=== PATIENT | male | born 1995 | race Caucasian/White ===

== ENCOUNTER 2020-12-27 10:05 | Emergency (ER) | payer OTHER ==
[~2020-12-27] VITALS: Ht 185.4 cm; Wt 117.3 kg
[2020-12-27 10:13] VITALS: BP 137/90
--- NOTE | 2020-12-27 10:16 | NUR ---
PT TO WAIT IN LOBBY
--- NOTE | 2020-12-27 10:20 | NUR ---
25 Y/O MALE C/O BACK PAIN X3 DAYS S/P FALLING AT WORK. PT SAW DR AT WORK, STATED EVERYTHING WAS FINE BUT NOW WANTS SECOND OPINION. HIT HEAD, DENIES LOC PMH:DENIES NKDA
[2020-12-27] MEDS ORDERED: ACETAMINOPHEN 325 MG TAB PO ONE (10:35)
--- NOTE | 2020-12-27 11:16 | NUR ---
PT TAKEN TO [facility] W/C FROM XR.
[2020-12-27] MEDS ORDERED: NAPR-54 PO (12:13)
[2020-12-27 13:00] VITALS: BP 137/90
--- NOTE | 2020-12-27 13:00 | NUR ---
Patient discharged with v/s stable. Written and verbal after care instructions given and explained. Patient verbalized understanding. Ambulatory with steady gait. All questions addressed prior to discharge. Advised to follow up with PMD.
== END 2020-12-27 13:00 | disposition home or self-care (01) ==
LOC: MED 10:05
DX: S13.4XXA Sprain of ligaments of cervical spine, initial encounter (principal); S43.401A Unspecified sprain of right shoulder joint, initial encounter; M79.10 Myalgia, unspecified site; F17.210 Nicotine dependence, cigarettes, uncomplicated; W19.XXXA Unspecified fall, initial encounter; Y93.89 Activity, other specified; Y92.89 Other specified places as the place of occurrence of the external cause; Y99.8 Other external cause status
CPT/HCPCS: 72040; 72100; 73030; 99283; 99284

== ENCOUNTER 2022-04-01 13:20 | Inpatient (IN) | payer OTHER ==
[~2022-04-01] VITALS: Ht 174 cm; Wt 105.7 kg
[~2022-04-01 13:20] MED LIST: NAPR-54 PO
[2022-04-01 13:39] VITALS: BP 117/61
--- NOTE | 2022-04-01 13:41 | NUR ---
PT AMB TO BED 4.
[2022-04-01] MEDS ORDERED: MORPHINE SULFATE 4 MG/ML SYR IVP ONE (14:30)
[2022-04-01 14:50] LABS: BASOPHILS # (AUTO) 0.1 K/uL (0.00-0.22); BASOPHILS % (AUTO) 0.8 % (0.0-2.0); EOSINOPHILS # (AUTO) 0.3 K/uL (0-0.4); EOSINOPHILS % (AUTO) 3.3 % (0.0-4.0); HEMATOCRIT 44.3 % (36-52); HEMOGLOBIN 14.8 g/dL (12.0-18.0); LYMPHOCYTES # (AUTO) 1.3 K/uL (2.0-11.5); LYMPHOCYTES % (AUTO) 13.5 % (20.5-51.1); MEAN CORPUSCULAR HEMOGLOBIN 28 pg (27-31); MEAN CORPUSCULAR HGB CONC 33 g/dL (33-37); MEAN CORPUSCULAR VOLUME 83.1 fL (80-94); MONOCYTES # (AUTO) 0.6 K/uL (0.8-1.0); MONOCYTES % (AUTO) 6.2 % (1.7-9.3); NEUTROPHILS # (AUTO) 7.6 K/uL (1.8-7.7); NEUTROPHILS % (AUTO) 76.2 % (42.2-75.2); PLATELET COUNT (AUTO) 331 K/uL (140-450); RED BLOOD CELL COUNT(AUTO) 5.34 MIL/uL (4.20-6.10)
[2022-04-01 15:12] LABS: ALBUMIN 3.3 g/dL (3.4-5.0); ANION GAP 14.5 (8-16); CARBON DIOXIDE 27.7 mmol/L (21-32); CREATININE 0.8 mg/dL (0.6-1.3); POTASSIUM 4.2 mmol/L (3.5-5.1); TOTAL BILIRUBIN 0.3 mg/dL (0.0-1.0)
[2022-04-01] MEDS ORDERED: metroNIDAZOLE 500 MG/NS PREMIX 100 ML IV ONE (17:10)
[2022-04-01] MEDS ORDERED: cefTRIAXone 1,000 MG VIAL ONE (17:18)
[2022-04-01] MEDS ORDERED: NACL 0.9% 1,000 ML IV ONE (17:20)
--- NOTE | 2022-04-01 17:47 | NUR ---
Covid swab dropped off with lab.
[2022-04-01] MEDS ORDERED: POTASSIUM CHLORIDE 10 MEQ TABER PO PRN (19:10)
[2022-04-01] MEDS ORDERED: MAGNESIUM OXIDE 400 MG TAB PO PRN (19:10)
[2022-04-01] MEDS ORDERED: KCL 20 MEQ/WATER INJ PREMIX 200 ML IV PRN (19:10)
[2022-04-01] MEDS ORDERED: MAG SULF 2000 MG/WATER PREMIX 50 ML IV PRN (19:10)
[2022-04-01] MEDS ORDERED: MORPHINE SULFATE 4 MG/ML SYR IVP PRN (19:10)
[2022-04-01] MEDS ORDERED: VANCOMYCIN PER PHARMACY MC PRN (19:10)
[2022-04-01] MEDS ORDERED: HYDROcodone/APAP 5/325 MG 1 TAB TAB PO PRN (19:10)
[2022-04-01] MEDS ORDERED: ACETAMINOPHEN 325 MG TAB PO PRN (19:10)
[2022-04-01] MEDS ORDERED: ONDANSETRON 4 MG/2 ML VIAL IVP PRN (19:10)
[2022-04-01] MEDS: NACL 0.9% 1,000 ML IV SCH (19:24)
[2022-04-01] MEDS ORDERED: VANCOMYCIN HCL 1.25 GM in NACL 0.9% 250 ML IV SCH (20:00)
--- NOTE | 2022-04-01 20:33 | NUR ---
Patient will be admitted to care of NETTIE Pope and Shawna Ocasio MD. Admited to med surg. Will go to room. Belongings list completed. Report to NETTIE Pope.
[2022-04-01 21:02] VITALS: BP 115/66
--- NOTE | 2022-04-01 21:02 | NUR ---
RECEIVED REPORT FROM ER NURSE DIOGENES FOR CONTINUITY OF CARE. PATIENT IS A&O X4; NEPALI SPEAKING. PATIENT IS ON ROOM AIR, BREATHING IS NORMAL WITH SYMMETRICAL RISE AND FALL OF CHEST. IV IS A 20G LAC, RUNNING NS 80. PATIENT WAS ABLE TO AMBULATE FROM GURNEY TO BED WITHOUT DIFFICULTY; BUT PREFERS TO USE URINAL FOR VOIDING OPPOSED TO WALKING TO BATHROOM. ADMISSION VITALS WERE: BP 115/66, HR 82, TEMP 96.9, O2 98, RR 18. BED IS IN LOWEST POSITION, WHEELS LOCKED, CALL LIGHT IN PLACE. WILL CONTINUE TO OBSERVE PATIENT.
[2022-04-01] MEDS ORDERED: PIPERACILLIN/TAZOBACTAM 3.375 GM VIAL IV ONE (23:07)
[2022-04-01] MEDS: PIPERACILLIN/TAZOBACTAM 3.375 GM in DEXTROSE 5% 50 ML IV SCH (23:26)
--- NOTE | 2022-04-02 | NUR ---
DR. TORI EDDY CALLED AND ASKED ME TO FIND OUT FROM PATIENT WHERE THE PAIN WAS COMING FROM; I ASKED PATIENT WHERE THE PAIN WAS COMING FROM, PATIENT INDICATED JUST BELOW THE TESTICLES; I ASKED PATIENT IF IT WAS MORE ON THE RIGHT OR LEFT; PATIENT STATED IT WAS IN THE CENTER AND SHOWED ME THE PERINEAL AREA. INFORMED DR. EDDY OF LOCATION; INFORMED ME TO KEEP THE PATIENT NPO EXCEPT MEDS BECAUSE HE MAY HAVE SURGERY IN THE MORNING. PRINTED CONSENT FORM OUT AND PLACED IN PATIENT'S CHART FOR POSSIBLE SURGERY. USED MATERIALS ENGINEER TO DO ADMISSION (Pirate Pay ID# [id number]); USING MATERIALS ENGINEER INFORMED PATIENT OF NPO STATUS AND POSSIBLE SURGERY TOMORROW. PATIENT STATED OKAY. PATIENT WAS COOPERATIVE DURING ADMISSION. MANAGER BAKERY CALLED AFTER ADMISSION WAS DONE AND INFORMED ME THAT PATIENT WAS SCHEDULED TO HAVE SURGERY TOMORROW AT 1100 FOR AN I&D. I INFORMED PATIENT THAT SURGERY WAS SCHEDULED FOR TOMORROW AT 1100. STARTED PATIENT 0000 IVPB ZOSYN, PATIENT WAS LYING IN SEMI-FOWLERS IN BED STILL AWAKE BUT TRYING TO SLEEP. BREATHING WAS NORMAL WITH SYMMETRICAL RISE AND FALL OF CHEST. WILL CONTINUE TO OBSERVE PATIENT.
--- NOTE | 2022-04-02 02:00 | NUR ---
LOOKED IN ON PATIENT. PATIENT WAS AWAKE LYING HIGH-FOWLERS POSITION. BREATHING WAS NORMAL WITH SYMMETRICAL RISE AND FALL OF CHEST. IV WAS RUNNING NS 80. ASKED PATIENT HOW HE WAS, PATIENT STATED HE WAS OKAY. WILL CONTINUE TO OBSERVE PATIENT.
[2022-04-02 04:00] VITALS: BP 120/72
[2022-04-02] MEDS ORDERED: PIPERACILLIN/TAZOBACTAM 3.375 GM VIAL IV ONE (06:12)
[2022-04-02] MEDS: PIPERACILLIN/TAZOBACTAM 3.375 GM in DEXTROSE 5% 50 ML IV SCH ×4 (06:15→23:13)
--- NOTE | 2022-04-02 06:20 | NUR ---
ADMINISTERED 0600 MEDICATION TO PATIENT. IVPB STARTED WITHOUT ANY ISSUES. PATIENT WAS AWAKE, LYING HIGH-FOWLERS POSITION. BREATHING WAS NORMAL WITH SYMMETRICAL RISE AND FALL OF CHEST. REMINDED PATIENT HE HAS SURGERY AT 1100. PATIENT ACKNOWLEDGED UNDERSTANDING BY STATING, "YES, SURGERY AT 11".
[2022-04-02 06:52] LABS: BASOPHILS # (AUTO) 0.1 K/uL (0.00-0.22); BASOPHILS % (AUTO) 0.5 % (0.0-2.0); EOSINOPHILS # (AUTO) 0.3 K/uL (0-0.4); EOSINOPHILS % (AUTO) 2.8 % (0.0-4.0); HEMATOCRIT 40.4 % (36-52); HEMOGLOBIN 13.4 g/dL (12.0-18.0); LYMPHOCYTES # (AUTO) 1.4 K/uL (2.0-11.5); LYMPHOCYTES % (AUTO) 12.1 % (20.5-51.1); MEAN CORPUSCULAR HEMOGLOBIN 28 pg (27-31); MEAN CORPUSCULAR HGB CONC 33 g/dL (33-37); MEAN CORPUSCULAR VOLUME 82.9 fL (80-94); MONOCYTES # (AUTO) 0.7 K/uL (0.8-1.0); MONOCYTES % (AUTO) 6.2 % (1.7-9.3); NEUTROPHILS % (AUTO) 78.4 % (42.2-75.2); PLATELET COUNT (AUTO) 315 K/uL (140-450); RED BLOOD CELL COUNT(AUTO) 4.87 MIL/uL (4.20-6.10); RED CELL DISTRIBUTION WIDTH 14.3 % (11.6-13.7); WHITE BLOOD COUNT (AUTO) 11.5 K/uL (4.8-10.8)
[2022-04-02 07:16] LABS: ALBUMIN 2.9 g/dL (3.4-5.0); ANION GAP 13.8 (8-16); CARBON DIOXIDE 25.8 mmol/L (21-32); CREATININE 0.8 mg/dL (0.6-1.3); MAGNESIUM 1.8 mg/dL (1.8-2.4); POTASSIUM 3.6 mmol/L (3.5-5.1); TOTAL BILIRUBIN 0.3 mg/dL (0.0-1.0)
--- NOTE | 2022-04-02 07:30 | NUR ---
ENDORSED TO DAY SHIFT NURSE DIONISIO FOR CONTINUITY OF CARE. PATIENT IS STABLE.
--- NOTE | 2022-04-02 07:31 | NUR ---
RECEIVED REPORT FROM PIGMENT MIXER NURSE DAVID FOR CONTINUITY OF CARE. PT AWAKE IN BED. RESPIRATIONS EVEN AND UNLABORED ON RA. NO DISTRESS NOTED. NO COMPLAINTS OF PAIN. PT NPO EXCEPT MEDS. PT AND TRUCK CAR AND BUS CLEANER AWARE. NPO SIGN PLACED AT THE DOOR. SKIN INTACT, WARM AND DRY TO TOUCH. CALL LIGHT WITHIN REACH. SAFETY PRECAUTIONS IN PLACE.
[2022-04-02] MEDS: NACL 0.9% 1,000 ML IV SCH ×2 (07:55→22:15)
[2022-04-02 08:00] VITALS: BP 117/70
[2022-04-02] MEDS: VANCOMYCIN HCL 1.25 GM in DEXTROSE 5% 250 ML IV SCH ×2 (10:48→16:54)
--- NOTE | 2022-04-02 10:48 | NUR ---
IV VANCO ADMINISTERED BY NETTIE FRANK. NO ADVERSE REACTION NOTED.
--- NOTE | 2022-04-02 14:08 | NUR ---
PT CHECKED AND SEEN BY DR BEDOYA.
[2022-04-02 16:00] VITALS: BP 115/67
--- NOTE | 2022-04-02 16:08 | NUR ---
PATIENT HAS BEEN SCREENED AND CATEGORIZED MODERATE NUTRITION RISK. PATIENT WILL BE SEEN WITHIN 3-5 DAYS OF ADMISSION. REVIEWED BY SALVADOR MONTE RD
--- NOTE | 2022-04-02 18:29 | NUR ---
POSSIBLE TIME OF PROCEDURE 7PM PER CM. PT MADE AWARE.
[2022-04-02] MEDS ORDERED: BUPIVACAINE-MPF 0.25% 30 ML VIAL INJ ONE (18:40)
--- NOTE | 2022-04-02 18:49 | NUR ---
PT TRANSPORTED TO OR BY OR NURSE QURESHI. PT IS IN STABLE CONDITION. WILL ENDORSE TO PEER COUNSELOR NURSE.
--- NOTE | 2022-04-02 19:20 | NUR ---
GAVE BEDSIDE REPORT TO HOSPICE SUPERINTENDENT NURSE RACHEL FOR CONTINUITY OF CARE. ALL NEEDS MET THROUGHOUT SHIFT. PT IS STABLE.
[2022-04-02] MEDS ORDERED: fentaNYL citrate 0.05 MG/ML VIAL ONE (19:23)
[2022-04-02] MEDS ORDERED: PROPOFOL 200 MG/20 ML VIAL IV ONE ×2 (19:23→19:46)
[2022-04-02] MEDS ORDERED: KETOROLAC 30 MG/ML VIAL ONE (19:24)
[2022-04-02] MEDS ORDERED: ONDANSETRON 4 MG/2 ML VIAL ONE (19:24)
[2022-04-02] MEDS ORDERED: DEXAMETHASONE 4 MG/ML VIAL ONE (19:24)
[2022-04-02] MEDS ORDERED: ONDANSETRON 4 MG/2 ML VIAL IVP PRN (19:35)
[2022-04-02] MEDS ORDERED: HYDROmorphone 1 MG/ML AMP IVP PRN (19:35)
--- NOTE | 2022-04-02 20:25 | NUR ---
RECD. FROM OR VIA BED, ACCOMPANIED BY OR NURSE LYNNETTE. AWAKE, A/OX4. S/P I & D OF PERIRECTAL ABSCESS. INCISION WITH DRESSING AND PACKING, NO COVER PER OR NURSE REPORT. NO ACTIVE BLEEDING NOTED. IV OF NS INFUSING AT 100 ML/HR AT THE LEFT AC G20. VS STABLE. DENIES PAIN 0/10. MOTHER AT THE BEDSIDE.
--- NOTE | 2022-04-02 21:00 | NUR ---
APPLE JUICE GIVEN REQUESTED, TOLERATED WELL.
--- NOTE | 2022-04-02 22:00 | NUR ---
INSTRUCTED TO CALL NURSE WHENEVER NEEDING HELP. VERBALIZED UNDERSTANDING.
[2022-04-03] VITALS: BP 103/57
--- NOTE | 2022-04-03 | NUR ---
SLEEPING COMFORTABLY IN BED, RESPIRATION EVEN AND UNLABORED. VS STABLE.
[2022-04-03] MEDS: VANCOMYCIN HCL 1.25 GM in DEXTROSE 5% 250 ML IV SCH ×3 (00:35→17:00)
--- NOTE | 2022-04-03 02:00 | NUR ---
CHECKED PATIENT, STILL SLEEPING COMFORTABLY IN BED. NO SOB NOTED.
--- NOTE | 2022-04-03 04:00 | NUR ---
STILL SLEEPING, WAKEN UP REMINDED THAT HE SHOULD VOID, APPLE JUICE GIVEN.
[2022-04-03 05:30] LABS: BASOPHILS % (AUTO) 0.3 % (0.0-2.0); EOSINOPHILS % (AUTO) 0.1 % (0.0-4.0); HEMATOCRIT 43.3 % (36-52); HEMOGLOBIN 14.1 g/dL (12.0-18.0); LYMPHOCYTES # (AUTO) 0.9 K/uL (2.0-11.5); LYMPHOCYTES % (AUTO) 7.6 % (20.5-51.1); MEAN CORPUSCULAR HEMOGLOBIN 27 pg (27-31); MEAN CORPUSCULAR HGB CONC 33 g/dL (33-37); MEAN CORPUSCULAR VOLUME 84.3 fL (80-94); MONOCYTES # (AUTO) 0.3 K/uL (0.8-1.0); MONOCYTES % (AUTO) 2.4 % (1.7-9.3); NEUTROPHILS # (AUTO) 10.9 K/uL (1.8-7.7); NEUTROPHILS % (AUTO) 89.6 % (42.2-75.2); PLATELET COUNT (AUTO) 315 K/uL (140-450); RED BLOOD CELL COUNT(AUTO) 5.14 MIL/uL (4.20-6.10); RED CELL DISTRIBUTION WIDTH 14.2 % (11.6-13.7); WHITE BLOOD COUNT (AUTO) 12.1 K/uL (4.8-10.8)
[2022-04-03 06:20] LABS: ALBUMIN 2.9 g/dL (3.4-5.0); ANION GAP 17.2 (8-16); CARBON DIOXIDE 22.5 mmol/L (21-32); CREATININE 0.8 mg/dL (0.6-1.3); MAGNESIUM 1.9 mg/dL (1.8-2.4); POTASSIUM 3.7 mmol/L (3.5-5.1); TOTAL BILIRUBIN 0.4 mg/dL (0.0-1.0)
[2022-04-03] MEDS: PIPERACILLIN/TAZOBACTAM 3.375 GM in DEXTROSE 5% 50 ML IV SCH ×4 (07:00→23:41)
--- NOTE | 2022-04-03 07:15 | NUR ---
CONDITION REMAIN STABLE. ENDORSED TO AM NURSE FOR CONTINUITY OF CARE.
--- NOTE | 2022-04-03 07:16 | NUR ---
RECEIVED REPORT FROM NEUROPSYCHOLOGIST NURSE FOR CONTINUITY OF CARE. PT SLEEPING, EASILY AROUSABLE BY VERBAL STIMULI, WITH MOTHER AT BEDSIDE. RESPIRATIONS EVEN AND UNLABORED ON RA. NO DISTRESS NOTED. NO SIGNS OF PAIN. IV SITE ON LAC 20G, INFUSING IVF. CALL LIGHT WITHIN REACH.L SAFETY PRECAUTIONS IN PLACE.
[2022-04-03 08:00] VITALS: BP 114/60
[2022-04-03] MEDS: NACL 0.9% 1,000 ML IV SCH ×2 (08:15→20:49)
--- NOTE | 2022-04-03 13:02 | NUR ---
IV ABX ADMINISTERED BY NETTIE THORNTON. NO ADVERSE REACTION NOTED.
--- NOTE | 2022-04-03 14:20 | NUR ---
PT CHECKED AND SEEN BY DR BEDOYA.
[2022-04-03] MEDS ORDERED: AMOX-1230 PO (14:27)
[2022-04-03] MEDS ORDERED: ACET-8905 PO (14:28)
[2022-04-03 16:00] VITALS: BP 119/66
--- NOTE | 2022-04-03 19:24 | NUR ---
GAVE BEDSIDE REPORT TO LICENSED DIRECT ENTRY MIDWIFE NURSE MELINDA JULIEN FOR CONTINUITY OF CARE. ALL NEEDS MET THROUGHOUT SHIFT. PT IS IN STABLE CONDITION.
--- NOTE | 2022-04-03 19:30 | NUR ---
RECEIVED PATIENT LYING ON THE BED, PATIENT IS AWAKE, ALERT AND ORIENTED, DENIES PAIN UPON ASSESSMENT. PATIENT HAS IV ACCESS SITE ON LEFT AC G 20, PATENT AND INTACT, RUNNING NS @80ML/HR. CALL LIGHT WITHIN REACH.FAMILY AT BEDSIDE. WILL CONTINUE TO MONITOR THE PATIENT.
--- NOTE | 2022-04-03 23:22 | NUR ---
PATIENT IS ASLEEP, NO SIGNS OF DISTRESS NOTED, BREATHING EVEN AND NON LABORED ON ROOM AIR. CALL LIGHT WITHIN REACH. WILL CONTINUE TO MONITOR THE PATIENT.
--- NOTE | 2022-04-03 23:42 | NUR ---
IV ZOSYN GIVEN ORDERED. PATIENT IS AWAKE, DENIES PAIN, NO SIGNS OF DISTRESS NOTED. CALL LIGHT WITHIN REACH. WILL CONTINUE TO MONITOR THE PATIENT.
[2022-04-04] MEDS: VANCOMYCIN HCL 1.25 GM in DEXTROSE 5% 250 ML IV SCH (00:53)
[2022-04-04 04:00] VITALS: BP 113/77
--- NOTE | 2022-04-04 04:00 | NUR ---
CHECK ON PATIENT. WOUND ON BARRY-RECTAL AREA HAS DRESSING, RANULFO. WILL CONTINUE TO MONITOR THE AREA.
[2022-04-04] MEDS: PIPERACILLIN/TAZOBACTAM 3.375 GM in DEXTROSE 5% 50 ML IV SCH (05:24)
--- NOTE | 2022-04-04 05:25 | NUR ---
DUE MEDICATION GIVEN ORDERED. PATIENT IS ASLEEP, BREATHING EVEN AND NON LABORED ON ROOM AIR. CALL LIGHT WITHIN REACH. WILL CONTINUE TO MONITOR THE PATIENT.
[2022-04-04 05:45] LABS: BASOPHILS # (AUTO) 0.1 K/uL (0.00-0.22); BASOPHILS % (AUTO) 0.7 % (0.0-2.0); EOSINOPHILS # (AUTO) 0.2 K/uL (0-0.4); EOSINOPHILS % (AUTO) 2.5 % (0.0-4.0); HEMATOCRIT 40.4 % (36-52); HEMOGLOBIN 13.2 g/dL (12.0-18.0); LYMPHOCYTES # (AUTO) 1.3 K/uL (2.0-11.5); LYMPHOCYTES % (AUTO) 13.7 % (20.5-51.1); MEAN CORPUSCULAR HEMOGLOBIN 27 pg (27-31); MEAN CORPUSCULAR HGB CONC 33 g/dL (33-37); MEAN CORPUSCULAR VOLUME 83.3 fL (80-94); MONOCYTES # (AUTO) 0.9 K/uL (0.8-1.0); MONOCYTES % (AUTO) 9.1 % (1.7-9.3); NEUTROPHILS # (AUTO) 7.2 K/uL (1.8-7.7); PLATELET COUNT (AUTO) 272 K/uL (140-450); RED BLOOD CELL COUNT(AUTO) 4.84 MIL/uL (4.20-6.10); RED CELL DISTRIBUTION WIDTH 14.3 % (11.6-13.7); WHITE BLOOD COUNT (AUTO) 9.7 K/uL (4.8-10.8)
[2022-04-04 06:43] LABS: ALBUMIN 2.4 g/dL (3.4-5.0); ANION GAP 14.9 (8-16); CARBON DIOXIDE 23.6 mmol/L (21-32); CREATININE 1.6 mg/dL (0.6-1.3); MAGNESIUM 1.8 mg/dL (1.8-2.4); POTASSIUM 3.5 mmol/L (3.5-5.1); TOTAL BILIRUBIN 0.3 mg/dL (0.0-1.0)
--- NOTE | 2022-04-04 07:15 | NUR ---
RECEIVED BEDSIDE REPORT FROM ECONOMIC DEVELOPMENT SPECIALIST JC RN. PT AWAKE. A&O X4, BEDREST. ROOM AIR. REGULAR DIET. CONTINENT. BED TO LOWEST POSITION, CALL LIGHT WITHIN REACH, WILL CONTINUE TO MONITOR.
--- NOTE | 2022-04-04 07:26 | NUR ---
ENDORSED PATIENT TO NURSE SANA FOR CONTINUITY OF CARE. NEEDS MET THROUGHOUT THE SHIFT. PATIENT IS IN STABLE CONDITION.
[2022-04-04 11:35] VITALS: BP 119/68
--- NOTE | 2022-04-04 14:00 | NUR ---
PT D/C PER MD ORDER. WHEELED PT TO FRONT OF ENTRANCE OF HOSPITAL WITH FAMILY ACCOMPANIED. PT TRANSPORTED VIA PERSONAL VEHICLE. ANKIT GIBSON.
== END 2022-04-04 13:15 | disposition home or self-care (01) | DRG 720 ==
LOC: MED 13:20 → MTU 19:14
PROVIDERS: ADMIT Hospitalist; ATTEND Hospitalist
PROC: 0W9M0ZZ Drainage of Male Perineum, Open Approach (ICD-10-PCS; principal; 2022-04-02 19:00)
DX: A41.9 Sepsis, unspecified organism (principal); N17.0 Acute kidney failure with tubular necrosis; L02.215 Cutaneous abscess of perineum; K61.1 Rectal abscess; Z20.822 Contact with and (suspected) exposure to COVID-19; F17.200 Nicotine dependence, unspecified, uncomplicated; E66.3 Overweight; Z68.34 Body mass index [BMI] 34.0-34.9, adult
CPT/HCPCS: 36415; 72193; 80053; 80202; 83605; 83735; 85025; 87070; 87075; 87081; 87205; 96374; 96375; 99291; J0696; J1100; J1885; J2270; J2405; J2543; J2704; J3010; J3370; J3490; J7060; Q9967